=== PATIENT | male | born 1995 | race Caucasian/White ===

== ENCOUNTER 2022-07-15 21:58 | Emergency (ER) | payer OTHER ==
[~2022-07-15] VITALS: Ht 180.3 cm; Wt 81.6 kg
[2022-07-15] MEDS ORDERED: KETOROLAC TROMETHAMINE 60 MG INJ IM ONE (23:45)
[2022-07-16] MEDS ORDERED: KETOROLAC TROMETHAMINE 60 MG INJ IM ONE (00:05)
--- NOTE | 2022-07-16 00:08 | NUR ---
PATIENT OUT OF UNIT FOR X RAY.
--- NOTE | 2022-07-16 00:19 | NUR ---
PATIENT BACK FROM X RAY WITH NO DISTRESS NOTED.
[2022-07-16] MEDS ORDERED: CYCL10TA9 PO (01:29)
[2022-07-16] MEDS ORDERED: NAPR-1164 PO (01:29)
[2022-07-16 01:53] VITALS: BP 120/67
--- NOTE | 2022-07-16 01:54 | NUR ---
Patient discharged to home in stable condition. PATIENT WENT HOME WITH AND SON WENT WITH ALL BELONGINGS .V/S WNL .DENEIS PAIN . Written and verbal after care instructions given. Patient verbalizes understanding of instructions. Stressed follow up or return to ER for worsening s/s.
== END 2022-07-16 01:55 | disposition home or self-care (01) ==
LOC: ER 21:58
DX: S13.4XXA Sprain of ligaments of cervical spine, initial encounter (principal); S23.3XXA Sprain of ligaments of thoracic spine, initial encounter; V43.52XA Car driver injured in collision with other type car in traffic accident, initial encounter; Y92.414 Local residential or business street as the place of occurrence of the external cause
CPT/HCPCS: 72040; 72072; 99284; 96372; J1885; A4663